=== PATIENT | male | born 1935 | race Caucasian/White ===

== ENCOUNTER 2016-09-19 12:51 | Outpatient (CLI) | payer OTHER | END 2016-09-19 23:00 | LOC: LAB SRH 12:51 | DX: R06.02 Shortness of breath (principal); R53.83 Other fatigue | CPT/HCPCS: 90074; 90100; 91320; 93140; 95059 ==

== ENCOUNTER 2016-11-16 15:48 | Outpatient (CLI) | payer OTHER | END 2016-11-16 23:00 | LOC: LAB SRH 15:48 | DX: G40.109 Localization-related (focal) (partial) symptomatic epilepsy and epileptic syndromes with simple partial seizures, not intractable, without status epilepticus (principal) | CPT/HCPCS: 90074; 91429 ==

== ENCOUNTER → 2016-12-18 | Outpatient (CLI) | payer OTHER | LOC: LAB SRH 13:19 | DX: G40.109 Localization-related (focal) (partial) symptomatic epilepsy and epileptic syndromes with simple partial seizures, not intractable, without status epilepticus (principal) | CPT/HCPCS: 90074; 91429 ==